=== PATIENT | female | born 1960 ===

== ENCOUNTER 2016-12-21 18:23 | Observation (INO) ==
--- NOTE | 2016-12-21 18:43 | Emergency Department Note ---
Arrival - Arrival Chief Complaint: Extremity Injury Stated Complaint: arm fracture ED Nursing Triage Note: Patient states that she fell out of her doorway and fell onto right arm. obvious deformity, positive radial pulse. Mode of Arrival: Stretcher Limitations: No Limitations Source: Patient Time Seen by Provider: 12/21/16 18:40 - History of Present Illness HPI Narrative: The patient complains of right wrist pain and deformity after tripping and falling off of a step at home. She denies any other injury. Allergies/Adverse Reactions: Allergies Allergy/AdvReac Type Severity Reaction Status Date / Time naproxen [From Naprosyn] AdvReac Vomiting Verified 01/07/16 18:44 Home Medications: Home Medications Medication Instructions Recorded Confirmed Type Albuterol Sulfate [Ventolin HFA] 2 puff INH Q4-6H PRN 01/07/16 01/07/16 History Ergocalciferol (Vitamin D2) 50,000 unit PO Q36H 01/07/16 01/07/16 History [Vitamin D2] Gabapentin Cap/Tab [Neurontin 300 mg PO BID 01/07/16 01/07/16 History Cap/Tab] Insulin Detemir [Levemir FlexPen] 45 unit SUBCUT BEDTIME 01/07/16 01/07/16 History Lisinopril 20 mg PO DAILY 01/07/16 01/07/16 History Meloxicam 15 mg PO DAILY 01/07/16 01/07/16 History Montelukast Tab [Singulair Tab] 10 mg PO DAILY 01/07/16 01/07/16 History Omeprazole [Prilosec] 20 mg PO DAILY 01/07/16 01/07/16 History Potassium Chloride 20 meq PO DAILY 01/07/16 01/07/16 History amLODIPine [Norvasc] 10 mg PO DAILY 01/07/16 01/07/16 History glyBURIDE/METFORMIN 5-500 2 tablet PO BID W/MEALS 01/07/16 01/07/16 History [Glucovance 5-500] hydroCHLOROthiazide 12.5 mg PO DAILY 01/07/16 01/07/16 History [Hydrochlorothiazide] Review of System - Review of System 12 point system: reviewed and no additional remarkable complaints except as stated - Review of System Musculoskeletal: Present: arm pain Medical,Surgical,& Family Hx - Medical History Cardio: History of: Hypertension Endocrine: History of: Diabetes Mellitus (NIDDM) - Surgical History Reproductive Surgeries: Surgical HX of;: Hysterectomy Orthopedic Surgeries: Surgical HX of;: Total Knee Replacement Additional Surgical History: "Cyst in the chest" - Family History Family History: noncontributory - Social History Smoking Status: Never smoker Frequency of Alcohol Use: None Exam Physical Examination: GENERAL: Alert. No acute distress. HEENT: Normocephalic and atraumatic. There is no nasal drainage. No pharyngeal erythema or exudate. NECK: Normal inspection. Supple. No lymphadenopathy or meningismus. LUNGS: No respiratory distress. Clear to auscultation bilaterally, no wheezes, rales or rhonchi. HEART: Regular rate and rhythm. ABDOMEN: Soft, nontender and nondistended with normoactive bowel sounds. BACK: Normal inspection. SKIN: Color normal. Warm and dry. EXTREMITIES: There is obvious deformity of the right wrist. The the hand is deviated dorsally with respect to the radius. Patient has full range of motion of the fingers and is able to ramp lead my hand. Distal sensation and capillary refill are intact. She has a good radial pulse. NEUROLOGICAL/PSYCHIATRIC: Alert and oriented 3 with normal mood and affect. Cranial nerves normal. No motor or sensory deficit. Vital Signs: Vital Signs Temperature 99 F 12/21/16 18:34 Pulse Rate 104 H 12/21/16 18:34 Respiratory Rate 20 12/21/16 18:34 Blood Pressure 180/110 12/21/16 18:34 O2 Sat by Pulse Oximetry 98 12/21/16 18:34 Course - Reevaluation(s) Reevaluation #1: I have discussed the patient with Dr. Stahl and will admit to him for surgery tomorrow. Time: 20:14 Disposition Clinical Impression: Radius distal fracture Disposition: Still a Patient Condition: Stable Time of Disposition: 20:15
[2016-12-21] MEDS ORDERED: ONDANSETRON 4 MG/2 ML VIAL IV STA (18:50)
[2016-12-21] MEDS ORDERED: HYDROmorphone 2 MG/1 ML VIAL IV STA ×2 (18:50→20:25)
[2016-12-21] MEDS ORDERED: HYDROmorphone 2 MG/1 ML VIAL ONE (18:53)
[2016-12-21] MEDS ORDERED: ONDANSETRON 4 MG/2 ML VIAL ONE (18:53)
--- NOTE | 2016-12-21 19:15 | XRay Report ---
History: Wrist pain and deformity after fall Date: 12/21/2016 Study: Right wrist 3 views Comparison exam: No previous There is a comminuted intra-articular fracture of the distal metaphysis and epiphysis of the right radius with one shaft's width dorsal displacement of the main distal fracture fragment, mild dorsal distal angulation, and up to 22 mm overlap of the main distal fracture fragment. Impression: Acute comminuted intra-articular fracture distal right radial metaphysis and epiphysis PROCEDURE INTERPRETED AT [facility] DEPARTMENT OF RADIOLOGY Final Report Signed by: Dr. Gail Stokes
--- NOTE | 2016-12-21 19:19 | XRay Report ---
History: Wrist fracture after fall. Respiratory preoperative evaluation Date: 12/21/2016 Study: Chest x-ray AP portable Comparison exam: January 07, 2016 chest x-ray The cardiac silhouette is upper normal in size. There is no mediastinal mass. The pulmonary vasculature is not engorged. There is mild platelike scarring in the right lateral costophrenic angle. The lungs and pleural spaces are otherwise clear. There are some mild scattered emphysematous changes. Osseous structures are unchanged. Impression: No acute cardiopulmonary process compared to the previous study PROCEDURE INTERPRETED AT [facility] DEPARTMENT OF RADIOLOGY Final Report Signed by: Dr. Gail Stokes
[2016-12-21] MEDS ORDERED: MAGNESIUM HYDROXIDE SUSP 30 ML UDCUP PO PRN (20:18)
[2016-12-21] MEDS ORDERED: TEMAZEPAM 15 MG CAPSULE PO PRN (20:18)
[2016-12-21] MEDS ORDERED: ONDANSETRON 4 MG/2 ML VIAL IV PRN (20:18)
[2016-12-21] MEDS ORDERED: HYDROmorphone 2 MG/1 ML VIAL IV PRN (20:18)
[2016-12-21] MEDS ORDERED: PROMETHAZINE 25 MG/1 ML VIAL IM PRN (20:18)
[2016-12-21] MEDS ORDERED: ALBUTEROL 2.5 MG/3 ML NEB RESP TX PRN (20:21)
[2016-12-21 20:27] LABS: Basophils % 0.4 % (0.0-0.8); Eosinophils # 0.2 10*3/uL (0.0-0.87); Eosinophils % 1.5 % (0.00-10.9); Hematocrit 33.1 VOL% (35.7-47.0); Hemoglobin 11.4 GM/DL (12.0-16.0); Immature Granulocytes % 0.7 %; Immature Granulocytes Absolute 0.07 #; Lymphocytes # 2.8 10*3/uL (1.4-4.0); Lymphocytes % 27.6 % (21.3-54.2); Mean Corpuscular HGB Conc 34.4 GM/DL (32-36); Mean Corpuscular Hemoglobin 30 PG (27-34); Mean Corpuscular Volume 86.9 FL (87-102); Monocytes # 0.6 10*3/uL (0.11-0.8); Monocytes % 5.7 % (1.7-12.7); Neutrophils # 6.4 10*3/uL (1.4-7.4); Neutrophils % 64.1 % (38.7-73.9); Platelet Count 239 T/CUMM (130-400); Red Blood Count 3.81 MC/CUMM (3.8-5.5); Red Cell Distribution Width 13.2 % (9.3-17.3)
[2016-12-21] MEDS ORDERED: SODIUM CHLORIDE 0.9% 1,000 ML IV SCH (20:30)
[2016-12-21 20:56] LABS: Osmolality,Calculated 292.8 MOS/KG (273-304); Potassium 3.4 MMOL/L (3.5-5.1)
[2016-12-21] MEDS ORDERED: GABAPENTIN 300 MG CAPSULE PO SCH (21:00)
[2016-12-21] MEDS ORDERED: INSULIN GLARGINE 100 UNIT/ML SUBCUT SCH (21:00)
[2016-12-21] MEDS ORDERED: GLUCAGON 1 MG VIAL IM PRN (21:38)
[2016-12-21] MEDS ORDERED: DEXTROSE 50% 25 GM/50 ML VIAL IV PRN (21:38)
[2016-12-21] MEDS: HYDROmorphone 2 MG/1 ML VIAL IV PRN (23:47)
[2016-12-22] MEDS: INSULIN REGULAR 100 UNIT/ML SUBCUT SCH ×4 (00:57→18:01)
[2016-12-22] MEDS: HYDROmorphone 2 MG/1 ML VIAL IV PRN ×2 (04:44→09:18)
[2016-12-22] MEDS ORDERED: glyBURIDE/METFORMIN 5-500 MG TABLET PO SCH (08:00)
--- NOTE | 2016-12-22 08:35 | Orthopedic History & Physical ---
History of Present Illness Chief complaint: right distal radius fracture History of present illness: Ms. Bentley is a 56 year old female See dictated reports Home Medications Medication Instructions Recorded Confirmed Type Albuterol Sulfate [Ventolin HFA] 2 puff INH Q4-6H PRN 01/07/16 12/21/16 History Ergocalciferol (Vitamin D2) 50,000 unit PO DAILY W/BREAKFAST 01/07/16 12/21/16 History [Vitamin D2] Gabapentin Cap/Tab [Neurontin 300 mg PO BEDTIME 01/07/16 12/21/16 History Cap/Tab] Insulin Detemir [Levemir FlexPen] 45 unit SUBCUT BEDTIME 01/07/16 12/21/16 History Lisinopril 20 mg PO DAILY 01/07/16 12/21/16 History Meloxicam 15 mg PO DAILY PRN 01/07/16 12/21/16 History Montelukast Tab [Singulair Tab] 10 mg PO DAILY 01/07/16 12/21/16 History Omeprazole [Prilosec] 20 mg PO DAILY 01/07/16 12/21/16 History Potassium Chloride 20 meq PO DAILY 01/07/16 12/21/16 History amLODIPine [Norvasc] 10 mg PO DAILY 01/07/16 12/21/16 History glyBURIDE/METFORMIN 5-500 2 tablet PO BID W/MEALS 01/07/16 12/21/16 History [Glucovance 5-500] hydroCHLOROthiazide 12.5 mg PO DAILY 01/07/16 12/21/16 History [Hydrochlorothiazide] Allergies Allergy/AdvReac Type Severity Reaction Status Date / Time naproxen [From Naprosyn] AdvReac Vomiting Verified 01/07/16 18:44 Medical,Surgical,& Family Hx - Medical History Cardio: History of: Hypertension HEENT: History of: Eye Problem (cataract) Endocrine: History of: Diabetes Mellitus (NIDDM) Respiratory: History of: Asthma Musculoskeletal: History of: Back/Neck Problems (back) - Surgical History HEENT Surgeries: Surgical HX of: Eye Surgery (implainted lenses in both eyes) Reproductive Surgeries: Surgical HX of;: Section (3), Hysterectomy Orthopedic Surgeries: Surgical HX of;: Total Knee Replacement - Family History Family History: Reports;: Family Cancer (mother, aunts), Family Diabetes (mother , aunts), Family Hypertension (father, grandfather, grandmother), Family Stroke (grandmother, grandfather) - Social History Smoking Status: Never smoker Frequency of Alcohol Use: None Type of Drug Use: None Exam - Constitutional Vitals: Period Temp Pulse Resp BP Sys/[place] Pulse Ox Last 24 Hr 97.6 F-98.3 F 83-88 18-20 146-151/88-96 94-97 Results - Labs CBC & BMP: 12/21/16 20:13 12/21/16 20:13
[2016-12-22] MEDS ORDERED: hydroCHLOROthiazide 12.5 MG CAPSULE PO SCH (09:00)
[2016-12-22] MEDS ORDERED: MONTELUKAST 10 MG TABLET PO SCH (09:00)
[2016-12-22] MEDS ORDERED: amLODIPine 10 MG TABLET PO SCH (09:00)
[2016-12-22] MEDS ORDERED: LISINOPRIL 20 MG TABLET PO SCH (09:00)
[2016-12-22] MEDS ORDERED: PANTOPRAZOLE 40 MG TABLET PO SCH (09:00)
[2016-12-22] MEDS ORDERED: ceFAZolin 2,000 MG in PREMIX 1 EACH IV ONE (10:00)
[2016-12-22] MEDS ORDERED: DEXAMETHASONE 10 MG/1 ML VIAL ONE (11:25)
[2016-12-22] MEDS ORDERED: ONDANSETRON 4 MG/2 ML VIAL ONE (11:25)
[2016-12-22] MEDS ORDERED: PHENYLEPHRINE 1 MG/10 ML SYRINGE IV ONE (11:25)
[2016-12-22] MEDS ORDERED: PROPOFOL 200 MG/20 ML VIAL IV ONE (11:25)
[2016-12-22] MEDS ORDERED: LIDOCAINE 2% 5 ML VIAL ONE (11:25)
[2016-12-22] MEDS ORDERED: HYDROmorphone 2 MG/1 ML VIAL IV PRN (12:37)
[2016-12-22] MEDS ORDERED: ONDANSETRON 4 MG/2 ML VIAL IV PRN (12:37)
[2016-12-22] MEDS ORDERED: MAGNESIUM HYDROXIDE SUSP 30 ML UDCUP PO PRN (12:37)
--- NOTE | 2016-12-22 12:54 | Anesthesia ---
Anesthesia Post OP - Post Ansesthetic Evaluation Patient seen in post op: Yes Resp: within normal limits CV: within normal limits Mental: within normal limits Temp: within normal limits Rnry-[id number]-Ssznjerzr: within normal limits Nausea and Vomiting: within normal limits Pain: within normal limits
[2016-12-22] MEDS ORDERED: MELOXICAM 7.5 MG TABLET PO PRN (13:00)
[2016-12-22] MEDS ORDERED: LACTATED RINGERS 1,000 ML IV SCH (13:00)
--- NOTE | 2016-12-22 13:52 | XRay Report ---
XR wrist 3V RT Indication: Intraoperative C-arm fluoroscopy. Comparison: None. Technique: A total of 2 images were obtained intraoperatively using C-arm fluoroscopy. Findings: Images were reviewed and deemed satisfactory by the operative physician. Total fluoroscopy time was 11 seconds. Impression: 1. C-arm usage as detailed. 12/22/2016 1:49 PM PROCEDURE INTERPRETED AT [facility] DEPARTMENT OF RADIOLOGY Final Report Signed by: Dr. Justus Staton
[2016-12-22] MEDS ORDERED: ceFAZolin 2,000 MG in PREMIX 1 EACH IV SCH (16:00)
--- NOTE | 2016-12-22 17:49 | Discharge Summary ---
Hospital Course - Hospital Course Hospital Course: Admitted had open reduction internal fixation of wrist discharged home Diagnosis - Discharge Diagnosis (1) Fracture of radius, distal, right, closed Status: Acute Specialty Discharge - Follow Up or Referrals Follow up with: Gabriel Stahl Jr., MD [Physician] - 12/30/16 1:25 pm Discharge Plan - Discharge Data Disposition: Disch To Home/Self Care Condition at Discharge: Stable Discharge Diet: advance to your usual diet Activity: no lifting Hygiene: may shower, keep area(s) dry Weight Bearing at Discharge: weight bear as tolerated - Discharge Medications New HYDROcodone/ACETAMIN 7.5-325 [[place] 7.5-325] 2 tablet PO Q4H PRN #25 tablet PRN Reason: Pain Severe (8-10) Continue hydroCHLOROthiazide [Hydrochlorothiazide] 12.5 mg PO DAILY glyBURIDE/METFORMIN 5-500 [Glucovance 5-500] 2 tablet PO BID W/MEALS Insulin Detemir [Levemir FlexPen] 45 unit SUBCUT BEDTIME Gabapentin Cap/Tab [Neurontin Cap/Tab] 300 mg PO BEDTIME amLODIPine [Norvasc] 10 mg PO DAILY Albuterol Sulfate [Ventolin HFA] 2 puff INH Q4-6H PRN PRN Reason: Shortness Of Breath/Wheezing Ergocalciferol (Vitamin D2) [Vitamin D2] 50,000 unit PO DAILY W/BREAKFAST Potassium Chloride 20 meq PO DAILY Omeprazole [Prilosec] 20 mg PO DAILY Montelukast Tab [Singulair Tab] 10 mg PO DAILY Meloxicam 15 mg PO DAILY PRN PRN Reason: Pain Lisinopril 20 mg PO DAILY - Follow Up or Referral Follow Up: Gabriel Stahl Jr., MD [Physician] - 12/30/16 1:25 pm - Forms/Instructions Additional Discharge Instructions: Discharged home discharge medications [place] when necessary #25 no refills diet as tolerated routine splint care keep clean dry and intact follow-up in 8 days Exam - Constitutional Vitals: Period Temp Pulse Resp BP Sys/[place] Pulse Ox Last 24 Hr 97.2 F-98.4 F 83-95 16-20 116-155/75-96 94-99 Discharge Results Labs on day of discharge: Labs from last 24 hours 12/22/16 12/22/16 12/21/16 11:18 05:35 23:38 POC Glucose 142 H 234 H 275 H 12/21/16 21:29 POC Glucose 236 H DS: Provider Date of admission: 12/21/16 20:16 Primary care physician: Peace Corcoran MD Attending physician on admission: Gabriel Stahl Jr., MD Consults: 12/21/16 22:04 Consult to Dietitian [CONS] Routine Reason for Dietitian: Dietary Consult Consult Comment: weight loss over a year time 12/21/16 22:08 Consult to Pastoral Services [CONS] Routine Comment: Pastoral Screen: Request Warp Bleaching Vat Tender Visit 12/22/16 12:37 Consult to Occupational Therapy [CONS] Routine Reason for Occupational Therapy: Evaluate and Treat 12/22/16 12:59 Consult to Pharmacy [CONS] Routine Reason for Pharmacy Consult: Adjust Meds Renal Funct Discharging clinician: Gabriel Stahl Jr., MD
[2016-12-22 18:00] VITALS: BP 117/70
--- NOTE | 2016-12-22 18:02 | Operative Note ---
DATE: 12/22/2016 PREOPERATIVE DIAGNOSIS: COMMINUTED INTRAARTICULAR FRACTURE, RIGHT DISTAL RADIUS. POSTOPERATIVE DIAGNOSIS: SAME. OPERATIVE PROCEDURES: ORIF, right distal radius (more than 3 fragments). SURGEON: Gabriel Stahl Jr., MD ANESTHESIA: General. INDICATIONS: A 56-year-old female who fell off a stool at home. She sustained a co mminuted intraarticular fracture of her right wrist. She was taken to the operating room today for ORIF. DESCRIPTION OF PROCEDURE: The patient was taken to the operating room and under general anesthetic, the right upper extremity prepped and draped in the usual sterile manner. She received Ancef preop eratively. The limb was elevated, exsanguinated, and tourniquet inflated to 250 mmHg. A Derrell app oach was performed. A longitudinal incision was made overlying the volar wrist. The dissection was carried radial to the FCR retracting the radial artery in a radial direction. This allowed exposur e to the volar distal radius. The fracture was reduced and fixed with a Synthes volar locking plate , multiple locking screws distally as well as 3 screws in the shaft. Reduction and internal fixat ion was felt to be satisfactory. The tourniquet was deflated at 27 minutes and hemostasis verified. The wound was then irrigated and closed with 2-0 Vicryl and oziel. Sterile dressing and volar s plint was applied. She was awakened and taken to the recovery room in stable condition.
--- NOTE | 2016-12-22 18:05 | History and Physical Report ---
DATE: 12/22/2016 A 56-year-old female fell off a stool at home. She fell landing on her outstretched arm sustaining immediate pain with deformity. She was brought to [facility] for definitive treatme nt. No other injuries or complaints reported other than her right wrist injury. PAST MEDICAL: Diabetes, hypertension, arthritis, neuropathy, pulmonary. MEDICATIONS: Ventolin, Vitamins, Neurontin, Levemir, Lisinopril, Mobic, Singulair, Prilosec, Potass ium, Norvasc, Glucovance, and hydrochlorothiazide. ALLERGIES: NAPROXEN. PAST SURGERY: Hysterectomy, right total knee. PHYSICAL EXAMINATION GENERAL: A well-developed, nourished female. HEENT: Within normal limits. NECK: Nontender. CHEST: Clear. HEART: Regular rate and rhythm. ABDOMEN: Soft and nontender. /RECTAL: Deferred. EXTREMITIES: She has no pain about the left upper or either lower extremity. The right wrist is sp linted. She has intact sensibility, subjectively diminished slightly. Capillary refill is brisk. There is mild deformity about the wrist. No pain more proximal at the elbow. Radiographs confirmed a comminuted intraarticular fracture involving the right distal radius. IMPRESSION: COMMINUTED INTRAARTICULAR FRACTURE, RIGHT DISTAL RADIUS. PLAN: I have discussed with her the diagnosis and treatment recommendations including the need for operative reduction and stabilization. I have recommended using a volar locking plate. We will pro ceed with surgery later this morning. She appears to understand and agree with the plan.
[2016-12-23] MEDS ORDERED: POTASSIUM CHLORIDE 20 MEQ TABLET PO SCH (09:00)
[2016-12-23] MEDS ORDERED: ERGOCALCIFEROL 50,000 UNIT CAPSULE PO SCH ×2 (09:00)
== END 2016-12-22 18:46 | disposition home or self-care (01) ==
LOC: EDUNIT# → EDBD → N.3E 18:23 → N.ED 18:23 → N.3E 21:15
PROVIDERS: ADMIT Orthopaedic Surgery; ATTEND Orthopaedic Surgery